=== PATIENT | female | born 1970 | race Hispanic/Latino ===

== ENCOUNTER 2024-03-31 14:46 | Outpatient (CLI) | payer OTHER | END 2024-03-31 14:47 | disposition home or self-care (01) | LOC: CSHMAMMO 14:46 | PROVIDERS: ATTEND Physician Assistant | DX: Z12.31 Encounter for screening mammogram for malignant neoplasm of breast (principal); Z80.3 Family history of malignant neoplasm of breast | CPT/HCPCS: 77063; 77067 ==

== ENCOUNTER 2024-10-27 13:40 | Outpatient (CLI) | payer OTHER | END 2024-10-27 13:41 | disposition home or self-care (01) | LOC: CSHMAMMO 13:40 | PROVIDERS: ATTEND Physician Assistant | DX: N63.11 Unspecified lump in the right breast, upper outer quadrant (principal) | CPT/HCPCS: G0279 ==